=== PATIENT | female | born 1975 | race Caucasian/White ===

== ENCOUNTER 2017-03-09 15:17 | Outpatient (CLI) | payer OTHER ==
[~2017-03-09] VITALS: Ht 144.8 cm; Wt 106.8 kg
[~2017-03-09 15:17] MED LIST: VIC
[2017-03-09 15:23] VITALS: BP 139/81; PULSE 90; RESP 18; Ht 144.8 cm; Wt 106.8 kg
[2017-03-09] MEDS ORDERED: AMOX1TAB10 PO (15:33)
[2017-03-09] MEDS ORDERED: DOCU-159 PO (15:33)
[2017-03-09] MEDS ORDERED: HYDR-906 PO (15:33)
--- NOTE | 2017-03-09 16:12 | PN ---
Date/Time of Note Date/Time of Note DATE: 03/09/17 TIME: 16:09 Outpatient Progress Note Chief Complaint Abdominal pain/status post cholecystectomy/morbid obesity HPI Abdominal pain/patient has still mild abdominal discomfort, especially slight discomfort on the skin, at operative site, no bleeding or discharge, one area has minimal redness, Status post cholecystectomy/patient has gallstone, hand was recently hospitalized, patient had laparoscopic cholecystectomy, no fever chill, no jaundice, Morbid obesity/patient has morbid obesity, no history of hypothyroidism, Review of Systems Const: No Fever, no chills, no Wt. loss, no Fatigue, normal appetite, no diaphoresis morbidly obese,. Eyes: No pain, no discharge, no redness, no visual change, no foreign body. ENT: No pain, no bleeding, no congestion, no sore throat, no dysphagia, no discharge or rhinitis. Lymph: No adenopathy, no tender nodes, no lymphedema. Resp: No SOB, no cough, no sputum, no wheezing, no chest pain. CV: No chest pain, no palpitaions, no GAMBOA, no PND, no edema. GI: Normal appetite, mild abdominal pain mostly at the site of port of entry minimal redness, no bleeding or discharge, no pus,, no nausea, no vomiting, no diarrhea, no blood, no constipation. : No frequency, no urgency, no dysuria, no hematuria, no flank pain, no discharge, no bleeding. Musc:, no back pain, no neck pain, no knee pain, no restricted ROM. Skin: No rash, no skin lesions, no erythema, no laceration, no bruising, no pruritus. Neuro: No LUNA, no dizziness, no syncope, no seizure, no focal-weakness. Endo: No polyuria, no polydypsia, no dry-skin, no temp-intolerance. Psych: No hallucinations, no depression, no anxiety, no suicidal ideation. Ext: No edema, no pain, no ulcer, no weakness. Physical Exam Vital Signs Date Time Temp Pulse Resp B/P Pulse Ox O2 Delivery O2 Flow Rate FiO2 03/09/17 15:23 98.4 90 18 139/81 97 Room Air General Appearance: A 41 year-old female who appears well-developed, well- nourished, in no acute distress. Patient morbidly obese, HEENT: Head normocephalic, atraumatic. Pupils equal, round, reactive to light and accommodate. Sclerae are no jaundice. Nasal turbinates pink without erythema or nasal discharge. Mucous membranes pink and moist without lesions. Oropharynx clear without any exudate or discharge. NECK: Supple. Trachea midline, No thyromegaly, No cervical lymphadenopathy, No mass, No carotid bruits, No JVD, Carotid pulses 2+ bilaterally. PULMONARY: Clear to auscultaion bilaterally, No retractions, Chest expansion symmetric bilaterally, no rales, no ronchi, no dulness on percussion. CARDIAC: Normal SI and S2, Regular rate and rythm, no murmur, gallop, or rub. GASTROINTESTINAL: Abdomen is soft, mild-tender at the all port of entry, no bleeding discharge or redness, except one area where her port of entry minimal redness, no bleeding or discharge, Non Rigid, No distention, Positive bowel sounds x4 quadrants, Liver normal. SKIN: Warm, dry, no rash, no bruise, no echmosis. EXTREMITIES: Bilateral lower extremities normal, no edema, no phlabitus, pulse palpable, no contracture. MUSCULOSKELETAL: Spine Normal, Non-tender, Normal range of motion, No swelling, no deformity, no clubbing, or cyanosis, the patient has no edema to bilateral lower extremities, dorsalis pedis pulses palpable bilaterally. NEUROLOGIC: The patient is awake, alert, oriented, responding to yes/no questions appropriately, moving all extremities, cranial nerve intact, normal strenght, normal power, normal coordination, normal gait. Allergies Coded Allergies: No Known Drug Allergy (Verified Allergy, Mild, 03/23/10) PMH None Recent cholecystectomy, Social Hx No smoking no drinking, Family Hx No family history, Assessment/Plan Impression Abdominal pain/status post laparoscopic cholecystectomy/morbid obesity Plan Patient education done, Patient encouraged to increase activity, Patient encouraged to lose weight, Patient told if any fever or any significant problem to call us and we will see her immediately, or go to the emergency room Patient still has antibiotic, and pain medication,, Medications Home Meds Reported Medications Docusate Sodium* (Docusate Sodium*) 100 Mg Capsule, 100 MG PO BID for CONSTIPATION, #60 CAP 03/09/17 Amoxicillin/Potassium Clav (Amox-Clav 875-125 mg Tablet) 875-125 mg Tab, 1 TAB PO BID for 10 Days, #20 TAB 7/21/17 Hydrocodone/Acetaminophen ([place] 5-325 Tablet) 1 Each Tablet, 1 EACH PO Q6 for PAIN LEVEL 4-6, TAB 03/09/17 Discontinued Reported Medications Acetaminophen/Hydrocodone (Vicodin) 1 Tab Tab 03/21/10 FAMILIA LANG MD Mar 09, 2017 16:12
== END 2017-03-09 16:26 | disposition home or self-care (01) ==
LOC: DCC 15:17
PROVIDERS: ATTEND Internal Medicine
DX: G89.18 Other acute postprocedural pain (principal); R10.9 Unspecified abdominal pain; E66.01 Morbid (severe) obesity due to excess calories
CPT/HCPCS: G0463

== ENCOUNTER 2017-03-23 13:55 | Outpatient (CLI) | payer OTHER ==
[~2017-03-23] VITALS: Ht 144.8 cm; Wt 109.1 kg
[~2017-03-23 13:55] MED LIST changes: +AMOX1TAB10 PO; +DOCU-159 PO; +HYDR-906 PO; -VIC
[2017-03-23 14:08] VITALS: Ht 144.8 cm; Wt 109.1 kg
[2017-03-23 14:09] VITALS: BP 140/86; PULSE 71; RESP 18
--- NOTE | 2017-03-23 15:01 | PN ---
Date/Time of Note Date/Time of Note DATE: 03/23/17 TIME: 14:56 Outpatient Progress Note Chief Complaint Status post cholecystectomy/morbid obesity/small skin ulcer HPI Status post cholecystectomy/patient had laparoscopic cholecystectomy, patient had 6 holes, no nausea or vomiting, no epigastric discomfort, Morbid obesity patient morbidly obese, no history of any hypothyroidism, Small skin ulcer/patient has laparoscopic cholecystectomy, 5 holes are completely healed, the 6-hole is 0.5 x 0.5 cm skin ulcer, minimal necrotic material on it, but no redness around it, no discomfort, Review of Systems Const: No Fever, no chills, no Wt. loss, no Fatigue, normal appetite, no diaphoresis patient morbidly obese. Eyes: No pain, no discharge, no redness, no visual change, no foreign body. ENT: No pain, no bleeding, no congestion, no sore throat, no dysphagia, no discharge or rhinitis. Lymph: No adenopathy, no tender nodes, no lymphedema. Resp: No SOB, no cough, no sputum, no wheezing, no chest pain. CV: No chest pain, no palpitaions, no GAMBOA, no PND, no edema. GI: Normal appetite, no pain, no nausea, no vomiting, no diarrhea, no blood, no constipation. Patient has laparoscopic surgery 6 holes, 5 hole completely closed, 1 hold 0.5 x 0.5 cm still not healed, at the base minimal necrotic material present, no redness around the lesion, : No frequency, no urgency, no dysuria, no hematuria, no flank pain, no discharge, no bleeding. Musc: No bone/joint pain, no back pain, no neck pain, no knee pain, no restricted ROM. Skin: No rash, no skin lesions, no erythema, no laceration, no bruising, no pruritus. Neuro: No LUNA, no dizziness, no syncope, no seizure, no focal-weakness. Endo: No polyuria, no polydypsia, no dry-skin, no temp-intolerance. Psych: No hallucinations, no depression, no anxiety, no suicidal ideation. Ext: No edema, no pain, no ulcer, no weakness. Physical Exam Vital Signs Date Time Temp Pulse Resp B/P Pulse Ox O2 Delivery O2 Flow Rate FiO2 03/23/17 14:09 98.5 71 18 140/86 96 Room Air General Appearance: A 41 year-old female who appears well-developed, well- nourished, in no acute distress. HEENT: Head normocephalic, atraumatic. Pupils equal, round, reactive to light and accommodate. Sclerae are no jaundice. Nasal turbinates pink without erythema or nasal discharge. Mucous membranes pink and moist without lesions. Oropharynx clear without any exudate or discharge. NECK: Supple. Trachea midline, No thyromegaly, No cervical lymphadenopathy, No mass, No carotid bruits, No JVD, Carotid pulses 2+ bilaterally. PULMONARY: Clear to auscultaion bilaterally, No retractions, Chest expansion symmetric bilaterally, no rales, no ronchi, no dulness on percussion. CARDIAC: Normal SI and S2, Regular rate and rythm, no murmur, gallop, or rub. GASTROINTESTINAL: Abdomen is soft, non-tender, Non Rigid, No distention, Positive bowel sounds x4 quadrants, Liver normal patient has sick laparoscopic surgery opening, right completely healed, 1 at the bottom on the left side 0.5 x 0.5 cm open, and minimal necrotic material, no redness, no bleeding or discharge,. SKIN: Warm, dry, no rash, no bruise, no echmosis. EXTREMITIES: Bilateral lower extremities normal, no edema, no phlabitus, pulse palpable, no contracture. MUSCULOSKELETAL: Spine Normal, Non-tender, Normal range of motion, No swelling, no deformity, no clubbing, or cyanosis, the patient has no edema to bilateral lower extremities, dorsalis pedis pulses palpable bilaterally. NEUROLOGIC: The patient is awake, alert, oriented, responding to yes/no questions appropriately, moving all extremities, cranial nerve intact, normal strenght, normal power, normal coordination, normal gait. Allergies Coded Allergies: No Known Drug Allergy (Verified Allergy, Mild, 03/23/10) PMH No change Social Hx No change Family Hx No change Assessment/Plan Impression Status post laparoscopic cholecystectomy Morbid obesity Small skin lesion on abdominal wall Plan Patient education done about the abdominal wall ulcer, and avoid the pressure, let it breathe, keep it clean, if any fever bleeding or discharge call primary care physician or surgery, or go to the emergency room, Patient education done, Patient encouraged to follow with the primary care physician, at present patient does not any antibiotic, patient still has 2 more days, and the wound is completely clean, patient will be seen by primary care physician and patient explained if she needs antibiotic he will be the one to prescribe, Medications Home Meds Discontinued Reported Medications Docusate Sodium* (Docusate Sodium*) 100 Mg Capsule, 100 MG PO BID for CONSTIPATION, #60 CAP 03/09/17 Amoxicillin/Potassium Clav (Amox-Clav 875-125 mg Tablet) 875-125 mg Tab, 1 TAB PO BID for 10 Days, #20 TAB 03/09/17 Hydrocodone/Acetaminophen ([place] 5-325 Tablet) 1 Each Tablet, 1 EACH PO Q6 for PAIN LEVEL 4-6, TAB 03/09/17 FAMILIA LANG MD Mar 23, 2017 15:01
== END 2017-03-23 16:22 | disposition home or self-care (01) ==
LOC: DCC 13:55
PROVIDERS: ATTEND Internal Medicine
DX: L98.9 Disorder of the skin and subcutaneous tissue, unspecified (principal); E66.09 Other obesity due to excess calories